=== PATIENT | female | born 1960 | race Caucasian/White ===

== ENCOUNTER 2023-02-14 19:28 | Inpatient (IN) | payer MEDICAID ==
[~2023-02-14] VITALS: Ht 160 cm; Wt 77.1 kg
--- NOTE | 2023-02-14 19:38 | NUR ---
PT TO BED #4
--- NOTE | 2023-02-14 19:40 | NUR ---
CODE STROKE INITIATED BY DR. BOOTH
--- NOTE | 2023-02-14 19:42 | NUR ---
Patient resting in bed, A/Ox4, chest rise and fall symmetrical, no s/s of distress, on monitor.
[2023-02-14 19:43] VITALS: BP 175/95
--- NOTE | 2023-02-14 19:52 | NUR ---
PT RETURNED FROM CT VIA [facility]
[2023-02-14 20:12] LABS: BASOPHILS % (AUTO) 0.4 % (0.0-2.0); EOSINOPHILS # (AUTO) 0.1 K/uL (0-0.4); EOSINOPHILS % (AUTO) 1.4 % (0.0-4.0); HEMATOCRIT 34.8 % (36-48); HEMOGLOBIN 11.7 g/dL (12.0-16.0); LYMPHOCYTES # (AUTO) 2.3 K/uL (2.5-16.5); MEAN CORPUSCULAR HEMOGLOBIN 30 pg (27-31); MEAN CORPUSCULAR HGB CONC 34 g/dL (33-37); MEAN CORPUSCULAR VOLUME 89.2 fL (80-94); MONOCYTES # (AUTO) 0.5 K/uL (0.8-1.0); MONOCYTES % (AUTO) 5.5 % (1.7-9.3); NEUTROPHILS # (AUTO) 5.4 K/uL (1.8-7.7); NEUTROPHILS % (AUTO) 64.7 % (42.2-75.2); PLATELET COUNT (AUTO) 344 K/uL (140-450); RED BLOOD CELL COUNT(AUTO) 3.91 MIL/uL (4.20-5.40); RED CELL DISTRIBUTION WIDTH 15.2 % (11.6-13.7); WHITE BLOOD COUNT (AUTO) 8.3 K/uL (4.8-10.8)
[2023-02-14] MEDS ORDERED: ASPIRIN 325 MG TAB ONE (20:20)
[2023-02-14] MEDS ORDERED: ASPIRIN 325 MG TAB PO ONE (20:20)
[2023-02-14 20:44] LABS: ALBUMIN 4.2 g/dL (3.4-5.0); ANION GAP 11.2 (8-16); ASPARTATE AMINOTRANSFERASE 16 U/L (15-37); CARBON DIOXIDE 27.8 mmol/L (21-32); CHLORIDE 105 mmol/L (98-107); GFR ARICAN-AMERICAN 72 mL/min (>90); GLUCOSE 114 mg/dL (74-106); SODIUM SERUM 140 mmol/L (136-145); TOTAL BILIRUBIN 0.1 mg/dL (0.0-1.0); UREA NITROGEN, BLOOD 20 mg/dL (7-18)
--- NOTE | 2023-02-14 20:45 | NUR ---
Patient resting in bed, A/Ox4, chest rise and fall symmetrical, no s/s of distress, on monitor.
[2023-02-14] MEDS ORDERED: METF-1139 PO (20:52)
[2023-02-14] MEDS ORDERED: ONDANSETRON 4 MG/2 ML VIAL ONE (21:38)
[2023-02-14] MEDS ORDERED: ONDANSETRON 4 MG/2 ML VIAL IVP ONE (21:40)
--- NOTE | 2023-02-14 22:23 | NUR ---
Patient resting in bed, A/Ox4, chest rise and fall symmetrical, no c/o pain or s/s of distress, on monitor.
[2023-02-14 22:24] LABS: APPEARANCE,URINE CLEAR (CLEAR); BILIRUBIN,URINE NEGATIVE (NEGATIVE); BLOOD, URINE 2+ (NEGATIVE); COLOR,URINE YELLOW (YELLOW); LEUKOCYTE ESTERASE ,URINE TRACE (NEGATIVE); NITRITE, URINE NEGATIVE (NEGATIVE); UGLUCOSE NEGATIVE (NEGATIVE)
[2023-02-14 22:36] LABS: BARBITURATE, URINE NEGATIVE ng/ml (NEG <=200); BENZODIAZEPINE, URINE NEGATIVE ng/mL (NEG <=200); CANNABINOID, URINE NEGATIVE ng/mL (NEG <=50); COCAINE, URINE NEGATIVE ng/mL (NEG <=300); OPIATE, URINE NEGATIVE ng/mL (NEG <=2000); PHENCYCLIDINE SCREEN,URINE NEGATIVE ng/mL (NEG <=25)
--- NOTE | 2023-02-14 22:45 | NUR ---
Patient will be admitted to care of Dr. Sosa. Admited to Telemetry. Will go to room 104B. Belongings list completed. Report to Abdoulaye RN. Abdoulaye RN verbalized understanding of report, no further questions.
[2023-02-14 22:55] VITALS: BP 149/78
--- NOTE | 2023-02-14 22:55 | NUR ---
RECEIVED PATIENT FROM ER, PATIENT IS AWAKE, ALERT AND ORIENTED X 4 , DIFFICULT IN SPEAKING BUT ANSWER BY NODDING OF THE HEAD. DAUGHTER NEGIN SALAZAR ANSWERED ADMITTING QUESTIONS, LEFT SIDED WEAKNESS NOTED, FEELS NUMBNESS ON THE LEFT SIDE OF THE BODY. SKIN WARM AND DRY TO TOUCH. BED IN THE LOWEST AND LOCKED POSITION FOR SAFETY, CALL LIGHT WITHIN REACH, INSTRUCTION ON USE PROVIDED, ENCOURAGED TO CALL IF ASSISTANCE IS NEEDED.
--- NOTE | 2023-02-14 23:40 | NUR ---
CALL PLACED TO DR. ALVA REGARDING ADMITTING ORDERS. AWAITING CALL BACK
[2023-02-15] MEDS ORDERED: INSULIN LISPRO SLIDING SCALE 100 UNITS/ML VIAL SUBQ PRN ×2 (00:40→09:50)
[2023-02-15] MEDS ORDERED: DEXTROSE 50% 50 ML SYR IVP PRN ×2 (00:40→09:50)
[2023-02-15] MEDS ORDERED: HYDROcodone/APAP 5/325 MG 1 TAB TAB PO PRN (00:40)
[2023-02-15] MEDS ORDERED: HYDROcodone/APAP 10/325 MG 1 TAB TAB PO PRN (00:40)
--- NOTE | 2023-02-15 00:41 | NUR ---
NEW ORDERS GIVEN BY DR. ALVA. PIPE STRESS ENGINEER PUTTING IN ORDERS.
--- NOTE | 2023-02-15 00:52 | NUR ---
PATIENT NOW ABLE TO SPEAK IN COMPLETE SENTENCES. PER PT THIS HAPPENED BEFORE. PATIENT NOW ABLE TO MOVE LEFT ARM MORE. CALL LIGHT IN REACH, ENCOURAGED TO CALL IF ASSISTANCE IS NEEDED, PT VERBALLY ACKNOWLEDGED.
[2023-02-15 04:00] VITALS: BP 123/54
--- NOTE | 2023-02-15 05:20 | NUR ---
PROVIDED BEDPAN, VOIDED WITHOUT DIFFICULTY, PERINEAL CARE RENDERED. PULLED UP AND MADE COMFORTABLE IN BED. DENIES PAIN AT THIS TIME. CALL LIGHT PLACED WITHIN REACH.
[2023-02-15 06:15] LABS: CARBON DIOXIDE 25.3 mmol/L (21-32); CREATININE 0.8 mg/dL (0.6-1.3); POTASSIUM 4.3 mmol/L (3.5-5.1)
[2023-02-15] MEDS: BLOOD GLUCOSE MONITORING 1 DEV DEV FS SCH ×4 (06:17→20:09)
--- NOTE | 2023-02-15 06:41 | NUR ---
PATIENT IS ASLEEP. NO DISTRESS NOTED. ALL NEEDS ATTENDED TO. SAFETY PRECAUTIONS MAINTAINED DURING THE SHIFT, CALL LIGHT REMAINS WITHIN REACH.
[2023-02-15 06:50] LABS: BASOPHILS # (AUTO) 0.1 K/uL (0.00-0.22); BASOPHILS % (AUTO) 0.8 % (0.0-2.0); EOSINOPHILS # (AUTO) 0.2 K/uL (0-0.4); EOSINOPHILS % (AUTO) 1.8 % (0.0-4.0); HEMATOCRIT 33.5 % (36-48); HEMOGLOBIN 11.1 g/dL (12.0-16.0); LYMPHOCYTES # (AUTO) 2.6 K/uL (2.5-16.5); LYMPHOCYTES % (AUTO) 31.3 % (20.5-51.1); MEAN CORPUSCULAR HEMOGLOBIN 30 pg (27-31); MEAN CORPUSCULAR HGB CONC 33 g/dL (33-37); MEAN CORPUSCULAR VOLUME 89.7 fL (80-94); MONOCYTES # (AUTO) 0.4 K/uL (0.8-1.0); MONOCYTES % (AUTO) 5.4 % (1.7-9.3); NEUTROPHILS % (AUTO) 60.7 % (42.2-75.2); PLATELET COUNT (AUTO) 318 K/uL (140-450); RED BLOOD CELL COUNT(AUTO) 3.73 MIL/uL (4.20-5.40); WHITE BLOOD COUNT (AUTO) 8.3 K/uL (4.8-10.8)
[2023-02-15 08:00] VITALS: BP 123/65
--- NOTE | 2023-02-15 09:03 | NUR ---
PATIENT HAS BEEN SCREENED AND CATEGORIZED MODERATE NUTRITION RISK. PATIENT WILL BE SEEN WITHIN 3-5 DAYS OF ADMISSION. 02/17/23-02/19/[address]
[2023-02-15] MEDS ORDERED: POTASSIUM CHLORIDE 10 MEQ TABER PO PRN (09:50)
[2023-02-15] MEDS ORDERED: MAG SULF 2000 MG/WATER PREMIX 50 ML IV PRN (09:50)
[2023-02-15] MEDS ORDERED: MECLIZINE 25 MG TAB PO PRN (09:50)
[2023-02-15] MEDS ORDERED: ONDANSETRON 4 MG/2 ML VIAL IVP PRN (09:55)
[2023-02-15] MEDS ORDERED: ACETAMINOPHEN 325 MG TAB PO PRN (09:55)
[2023-02-15] MEDS ORDERED: HYDROcodone/APAP 7.5/325 MG 1 TAB PO PRN (09:55)
[2023-02-15] MEDS: NACL 0.9% 1,000 ML IV SCH (10:25)
[2023-02-15 10:29] LABS: CHOL/HDL RATIO 4.7 (1-4.5); FREE T4 (FREE THYROXINE) 0.9 ng/dL (0.76-1.46); THYROID STIMULATING HORMONE 1.89 uIU/mL (0.34-3.74)
[2023-02-15] MEDS ORDERED: BLOOD GLUCOSE MONITORING 1 DEV DEV FS SCH (11:30)
[2023-02-15 11:54] LABS: PROTHROMBIN TIME 9.4 secs (10.8-13.4)
[2023-02-15 12:00] VITALS: BP 117/65
[2023-02-15] MEDS ORDERED: ECOTRIN 81 MG TABEC PO SCH (14:30)
[2023-02-15] MEDS ORDERED: ASPIRIN 81 MG TAB.CHEW ONE (14:37)
[2023-02-15 16:00] VITALS: BP 117/64
[2023-02-15 20:00] VITALS: BP 126/72
--- NOTE | 2023-02-15 20:00 | NUR ---
Patient's Plan of Care was discussed and reviewed with PROGRAM MANAGER: FLOR GORE
--- NOTE | 2023-02-15 20:10 | NUR ---
SCHEDULED MEDICATIONS ADMINISTERED. PT BLOOD GLUCOSE = 166, 2 UNITS OF HUMALOG INSULIN WAS ADMINISTERED.
[2023-02-15] MEDS: DOCUSATE SODIUM 100 MG GELCAP PO SCH (20:20)
--- NOTE | 2023-02-15 20:56 | NUR ---
RECEIVED REPORT FROM DAY SHIFT NURSE FOR CONTINUITY OF CARE. PATIENT IS AWAKE AT THIS TIME, A&O X4, TELUGU SPEAKING. PATIENT IS AMBULATORY AND CONTINENT. CURRENTLY ON ROOM AIR WITH NO APPARENT SIGNS OF ACUTE DISTRESS NOTED. IV SITE LOCATED AT LEFT AC 20 GAUGE, INTACT AND PATENT. PATIENT STATES NO PAIN AT THIS TIME. OVERALL SKIN IS INTACT, NO OPEN WOUNDS. CALL LIGHT WITHIN REACH, SAFETY MEASURES IN PLACE.
[2023-02-16] VITALS: BP 103/62
--- NOTE | 2023-02-16 00:12 | NUR ---
PATIENT RESTING COMFORTABLY. NO VISIBLE SIGNS OF DISTRESS NOTED, WILL CONTINUE TO MONITOR.
[2023-02-16 04:00] VITALS: BP 117/61
[2023-02-16] MEDS: NACL 0.9% 1,000 ML IV SCH (05:55)
[2023-02-16] MEDS: BLOOD GLUCOSE MONITORING 1 DEV DEV FS SCH ×2 (06:30→12:19)
--- NOTE | 2023-02-16 06:31 | NUR ---
PATIENT SLEPT WELL THROUGHOUT THE NIGHT. LAST BLOOD SUGAR CHECK = 110, NO COVERAGE NEEDED. NO ACUTE EVENTS OVERNIGHT, WILL ENDORSE TO DAY SHIFT NURSE IN STABLE CONDITION.
[2023-02-16 06:44] LABS: BASOPHILS # (AUTO) 0.1 K/uL (0.00-0.22); BASOPHILS % (AUTO) 0.9 % (0.0-2.0); EOSINOPHILS # (AUTO) 0.1 K/uL (0-0.4); EOSINOPHILS % (AUTO) 1.5 % (0.0-4.0); HEMATOCRIT 34.9 % (36-48); HEMOGLOBIN 11.5 g/dL (12.0-16.0); LYMPHOCYTES # (AUTO) 1.8 K/uL (2.5-16.5); LYMPHOCYTES % (AUTO) 28.1 % (20.5-51.1); MEAN CORPUSCULAR HEMOGLOBIN 30 pg (27-31); MEAN CORPUSCULAR HGB CONC 33 g/dL (33-37); MEAN CORPUSCULAR VOLUME 89.8 fL (80-94); MONOCYTES # (AUTO) 0.4 K/uL (0.8-1.0); MONOCYTES % (AUTO) 5.8 % (1.7-9.3); NEUTROPHILS # (AUTO) 4.1 K/uL (1.8-7.7); NEUTROPHILS % (AUTO) 63.7 % (42.2-75.2); PLATELET COUNT (AUTO) 344 K/uL (140-450); RED BLOOD CELL COUNT(AUTO) 3.89 MIL/uL (4.20-5.40); RED CELL DISTRIBUTION WIDTH 14.7 % (11.6-13.7); WHITE BLOOD COUNT (AUTO) 6.5 K/uL (4.8-10.8)
[2023-02-16 07:02] LABS: ANION GAP 12.9 (8-16); CARBON DIOXIDE 23.6 mmol/L (21-32); CREATININE 0.8 mg/dL (0.6-1.3); POTASSIUM 4.5 mmol/L (3.5-5.1)
[2023-02-16 07:05] LABS: MAGNESIUM 1.9 mg/dL (1.8-2.4); PHOSPHORUS 4.6 mg/dL (2.5-4.9)
[2023-02-16 08:00] VITALS: BP 120/64
[2023-02-16] MEDS ORDERED: PANTOPRAZOLE 40 MG INJ VIAL IVP SCH (09:00)
[2023-02-16] MEDS ORDERED: NON-FORMULARY ITEM (Metformin HCl* (Glucophage Xr*) 1 TAB) PO SCH (09:00)
[2023-02-16] MEDS ORDERED: ASPIRIN 81 MG TAB.CHEW PO SCH (09:00)
[2023-02-16] MEDS ORDERED: ATORVASTATIN 20 MG TAB PO SCH (09:00)
[2023-02-16] MEDS ORDERED: metFORMIN 500 MG TAB PO SCH (09:00)
[2023-02-16] MEDS: DOCUSATE SODIUM 100 MG GELCAP PO SCH (09:46)
[2023-02-16] MEDS ORDERED: ATOR20TA40 PO (10:13)
[2023-02-16] MEDS ORDERED: ASPI81CT95 PO (10:13)
--- NOTE | 2023-02-16 10:30 | NUR ---
RECEIVED ORDER FOR PATIENT TO GET OUTPATIENT MRI AND EEG FAXED ORDER AND FACE SHEET TO [facility].
[2023-02-16 12:00] VITALS: BP 131/66
--- NOTE | 2023-02-16 12:37 | NUR ---
DISCHARGE PATIENT IN STABLE CONDITION PER PCP ORDER, PT EVAL DONE AND PT RECOMMEND TO CONTINUE PT IN HOME BECAUSE THAT PATIENT HAD L. SIDE WEAKNESS 2/2 L. KNEE REPLACEMENT & L. ELBOW SCREW PINED YEARS AGO. DISCHARGE INSTRUCTION GIVE; DISCHARGE CONSENT SIGNED; IV ACCESS, TEL. MONITOR, & WRIST BAND REMOVE PRIOR DISCHARGE PATIENT HOME
== END 2023-02-16 13:30 | disposition home or self-care (01) | DRG 422 ==
LOC: MED 19:28 → MTU 22:21
PROC: 4A00X4Z Measurement of Central Nervous Electrical Activity, External Approach (ICD-10-PCS; principal; 2023-02-16)
DX: E86.0 Dehydration (principal); G45.0 Vertebro-basilar artery syndrome; G45.9 Transient cerebral ischemic attack, unspecified; E11.9 Type 2 diabetes mellitus without complications; I10 Essential (primary) hypertension; Z20.822 Contact with and (suspected) exposure to COVID-19; Z96.652 Presence of left artificial knee joint; Z90.710 Acquired absence of both cervix and uterus
CPT/HCPCS: 36415; 70450; 71045; 80048; 80053; 80305; 81001; 82140; 82150; 82948; 83036; 83605; 83690; 83735; 83880; 84100; 84439; 84443; 84484; 85025; 85610; 85730; 87040; 87081; 87086; 92526; 93005; 93880; 93925; 93970; 95816; 96374; 97110; 97116; 97530; 99291; C9113; G0482; J1644; J2405; Q0092; Q9967